=== PATIENT | male | born 1995 | race Caucasian/White ===

== ENCOUNTER 2023-10-09 09:03 | Emergency (ER) | payer OTHER ==
[~2023-10-09] VITALS: Ht 172.7 cm; Wt 131.5 kg
[2023-10-09 09:27] VITALS: BP 121/80; PULSE 88; RESP 16; TEMP 98; O2SAT 99
[2023-10-09] MEDS ORDERED: OXYC5TAB4 PO ×2 (09:43→09:46)
[2023-10-09] MEDS ORDERED: AMOX1TAB8 PO (09:48)
[2023-10-09 10:12] VITALS: BP 129/76; PULSE 80; RESP 16; TEMP 98; O2SAT 98
== END 2023-10-09 10:11 | disposition home or self-care (01) ==
LOC: MED 09:03
DX: R22.0 Localized swelling, mass and lump, head (principal); K08.89 Other specified disorders of teeth and supporting structures; Z79.2 Long term (current) use of antibiotics; Z79.899 Other long term (current) drug therapy
CPT/HCPCS: 99283